=== PATIENT | female | born 1985 | race Caucasian/White ===

== ENCOUNTER 2023-04-07 00:34 | Emergency (ER) | payer OTHER ==
[~2023-04-07] VITALS: Ht 154.9 cm; Wt 106.0 kg
[2023-04-07 00:51] VITALS: BP 127/75; PULSE 88; RESP 20; TEMP 98.3
[2023-04-07] MEDS ORDERED: CAPT25TA3 PO (00:51)
[2023-04-07] MEDS: KETOROLAC TROMETHAMINE 60 MG/2 ML VIAL IM ONE (04:05)
[2023-04-07] MEDS: DEXAMETHASONE 4 MG TABLET PO ONE (04:05)
[2023-04-07] MEDS: ONDANSETRON HCL 4 MG TABLET PO ONE (04:06)
[2023-04-07] MEDS ORDERED: IBUP-1492 PO (04:14)
[2023-04-07] MEDS ORDERED: ONDA-104 PO (04:14)
[2023-04-07 05:03] LABS: APPEARANCE,URINE CLEAR (CLEAR); BILIRUBIN,URINE NEGATIVE (NEGATIVE); COLOR,URINE COLORLESS (YELLOW); GLUCOSE, URINE (UA) NEGATIVE (NEGATIVE); KETONES,URINE NEGATIVE (NEGATIVE); LEUKOCYTE ESTERASE ,URINE NEGATIVE (NEGATIVE); NITRATE,URINE NEGATIVE (NEGATIVE); OCCULT BLOOD,URINE NEGATIVE (NEGATIVE); PROTEIN,URINE NEGATIVE (NEGATIVE); SPECIFIC GRAVITIY, URINE 1.006 (1.003-1.030); UROBILINOGEN,URINE <=1.0 mg/dL (<=1.0)
== END 2023-04-07 05:46 | disposition home or self-care (01) ==
LOC: EMS 00:34
DX: G43.909 Migraine, unspecified, not intractable, without status migrainosus (principal); I10 Essential (primary) hypertension; Z90.49 Acquired absence of other specified parts of digestive tract; Z98.890 Other specified postprocedural states; Z88.0 Allergy status to penicillin
CPT/HCPCS: 99283; 81003; 96372; J8540; J1885; Q0162